=== PATIENT | male | born 1950 | race Hispanic/Latino ===

== ENCOUNTER 2017-11-27 05:51 | Day surgery (SDC) | payer BC, MEDICARE ==
[2017-11-08 09:09] VITALS: BMI 26.3
[2017-11-27 06:44] VITALS: RESP 18
[2017-11-27] MEDS ORDERED: Verapamil 2 ML ONE (06:59)
[2017-11-27] MEDS ORDERED: Lidocaine 2% Inj (20ml) ONE (06:59)
[2017-11-27] MEDS ORDERED: Nitroglycerin 50mg in D5W 50 MG/250 ML BOTTLE IV ONE (06:59)
[2017-11-27] MEDS ORDERED: HEPARIN SODIUM/NS 2,000 ML IV ONE (07:00)
[2017-11-27 07:12] LABS: BASO # 0.01 K/mm3 (0.0-2.0); BASO % 0.2 % (0.0-3.0); EOS # 0.2 (0.0-0.7); EOS % 3.4 % (1.5-5.0); GRAN # 3.24 (1.4-6.5); GRAN % 69.9 % (50.0-68.0); HEMOGLOBIN 14.1 g/dL (14.0-18.0); LYMPH % 21.8 % (22.0-35.0); MEAN CELL VOLUME 97.4 fl (80.0-105.0); MEAN CORPUSCULAR HEMOGLOBIN 33.2 pg (25.0-35.0); MEAN CORPUSCULAR HGB CONC 34.1 g/dl (31.0-37.0); MEAN PLATELET VOLUME 9.9 fl (7.0-11.0); MONO # 0.2 (0.1-0.6); MONO % 4.7 % (1.0-6.0); RBC 4.25 10^6/uL (3.5-6.1); RED CELL DISTRIBUTION WIDTH 13.4 % (11.5-14.5); WHITE BLOOD COUNT 4.6 10^3/ul (4.5-11.0)
[2017-11-27 07:21] LABS: BLOOD UREA NITROGEN 13 mg/dL (7-21); CALCIUM 9.5 mg/dL (8.4-10.5); GFR AFRICAN-AMERICAN > 60; GFR NON-AFRICAN AMERICAN > 60; HDL CHOLESTEROL 67 mg/dL (29-60)
[2017-11-27 07:27] LABS: INR 0.97 (0.93-1.08); PARTIAL THROMBOPLASTIN TIME 32.4 Seconds (25.1-36.5); PROTHROMBIN TIME 11.1 SECONDS (9.4-12.5)
[2017-11-27 07:30] LABS: LDL CHOLESTEROL 120 mg/dL (0-129)
[2017-11-27] MEDS ORDERED: Midazolam 2 MG/2 ML VIAL ONE (07:42)
[2017-11-27] MEDS ORDERED: Bacitracin 500 Units/gm Oint Foilpak UD TOP ONE (08:40)
[2017-11-27] MEDS ORDERED: Sodium Chloride 0.9% 1,000 ML IV SCH (08:45)
[2017-11-27 09:00] VITALS: TEMP 98.7
[2017-11-27 10:43] VITALS: BP 156/89; PULSE 57; O2SAT 98
[2017-11-27] MEDS ORDERED: Bacitracin 500 Units/gm Oint Foilpak UD ONE (11:03)
--- NOTE | 2017-11-27 14:01 | CARD ---
APPROVED REPORT EKG Measurement Heart [id number] <Conclusion> Normal sinus rhythm Normal ECG
--- NOTE | 2017-11-27 14:31 | CARD ---
APPROVED REPORT Procedure(s) performed: Left Heart Catheterization HISTORY The patient is a 67 year-old male with a history of : most recent EF: 53%. (EF Method: ESTIMATE), peripheral vascular disease, previous diagnostic cath, tobacco history() : The patient is a former smoker , previous PCI (The PCI date was 06/27/2018), hypertension , dyslipidemia , [facility] who has a f?u Abnormal stress test. INDICATION The indication(s) include : positive stress test. CASE TECHNIQUE The patient was brought electively to the Cardiac Catheterization Laboratory in a fasting state and was prepped and draped in a sterile manner. The left wrist was infiltrated with 2% Lidocaine subcutaneous anesthesia. A 6FR GLIDESseoreseller.comTH ACCESS KIT sheath was inserted into the left radial artery without difficulty. Coronary angiography was performed using coronary diagnostic catheters. The left coronary system was accessed and visualized with a Diagnostic ,6 Fr JL 3.0 catheter. The right coronary system was accessed and visualized with a Diagnostic ,5 Fr JR 4 catheter. The left ventricle was accessed and visualized with a 5 Fr Pigtail 145 (Angled) catheter. Left ventricular/Aortic Valve gradient assessed on pullback. Left ventriculogram was performed in PEREZ projection. Closure device was deployed with a Fr TR Band (Regular) without any complications. The patient tolerated the procedure well and there were no complications associated with the procedure. Vessel Analysis The patient's coronary anatomy is right dominant. The left main coronary artery is a large size vessel with diffuse calcification noted throughout this vessel and without significant stenosis. Patent stent in proximal left main The left main bifurcates to the left anterior descending and circumflex. The left anterior descending artery is a medium size vessel with diffuse calcification noted throughout this vessel and without significant stenosis. There is a 40-50% stenosis in the ostial segment. Mid LAD has 40-50% stenosis The first diagonal branch is a small size vessel with diffuse calcification noted throughout this vessel and without significant stenosis. The second diagonal branch is a small size vessel with diffuse calcification noted throughout this vessel and without significant stenosis. The circumflex artery is a medium size vessel with diffuse calcification noted throughout this vessel and without significant stenosis. The first obtuse marginal branch is a small size vessel with diffuse calcification noted throughout this vessel and without significant stenosis. The ramus intermedius artery is a large size vessel with diffuse calcification noted throughout this vessel and without significant stenosis. The right coronary artery is a large size vessel with diffuse calcification noted throughout this vessel and with significant stenosis. There is a 55-60% stenosis in the proxima to Midl segment. The right posterior descending artery is a large size vessel with diffuse calcification noted throughout this vessel and without significant stenosis. The right posterolateral branch is a medium size vessel with diffuse calcification noted throughout this vessel and without significant stenosis. Left Ventricle The left ventricle is normal in size with normal contractility. There was no cardiomyopathy. The left ventricular ejection fraction is estimated to be 55-60%. The left ventricular end diastolic pressure is 14 mmHg. Conclusion Patent stent in Left Main Moderate disease in RCA / LAD. Preserved LV Fx./ EF-55-60%, EDP-14 Recommendations Aggressive Medical TherapyCardiac Risk Reduction Program F/u Stress test in one to two years to monitor progression of CAD. CC; DRS. Victorino Lay / [place].
--- NOTE | 2017-11-27 15:00 | HP ---
REASON FOR ADMISSION: Left heart cath, possible angioplasty, and abnormal stress test. BRIEF CLINICAL HISTORY: This is a 67-year-old male with past medical history significant for coronary artery disease, status post stent in left main at [facility] in 05/2016, history of hyperlipidemia, history of hypertension, history of bulging herniated disk and hernia stress test was abnormal, so the patient is scheduled for elective cardiac catheterization, possible angioplasty. PAST MEDICAL HISTORY: Significant for as mentioned hypertension, hyperlipidemia, coronary artery disease, and status post PTCA of left main in 05/2016 at [place]. SOCIAL HISTORY: Denies smoking. Denies any history of alcohol abuse. CURRENT MEDICATIONS: The patient is taking Lidocaine patch for , ticagrelor that is Brilinta 90 mg twice a day, and aspirin 81 mg daily. Most recent cardiac workup as follows: The patient had a stress test dated 11/08/2017, the patient walked for 12 minutes and 26 seconds and the Williams protocol was negative, but a stress component and thallium component was positive for a small apical distal inferior defect suspicious for ischemia, ejection fraction of 53% when compared from the previous study dated 06/07/2016, previous fixed defect now appears to be reversible. The patient also had echocardiography on 11/08/2017 that shows normal chamber size, ejection fraction 65%, mild mitral regurgitation, mild tricuspid regurgitation, RV systolic pressure of 45%, and no pericardial effusion, IVC 50%. PHYSICAL EXAMINATION: VITAL SIGNS: Height of the patient is 5 feet 6 inches. Weight of the patient is 163 pounds. Body mass index is 26.3 kg/m2. Rest of the examination as follows; temperature afebrile, heart rate is 68, and blood pressure 130/70. HEENT: PERRLA. Extraocular muscles intact. NECK: Supple. No carotid bruit or thyromegaly. CHEST: Clear to auscultation. HEART: S1 and S2 regular. ABDOMEN: Soft. EXTREMITIES: Clubbing and cyanosis negative. LABORATORY DATA: Blood workup pending. IMPRESSION: Abnormal stress test showing apical septal inferior defect reversible ischemia suggestive of ischemia. Echocardiogram shows preserved left ventricular function, normal chamber size with an ejection fraction of 65%. RECOMMENDATIONS: We will continue the patient's aspirin and Brilinta. The patient is not taking statin, mentions that he gets rash and intolerance. We will wait for the blood workup, no blood workup is available and within the normal limits, we will proceed for cardiac catheterization for further recommendation and also cardiac catheterization. We will follow with you. Thank you Dr. Jones for providing us the opportunity in taking care of the patient, Ángel Bone. Annette Pedro MD
== END 2017-11-27 12:00 | disposition home or self-care (01) ==
LOC: CATH 05:51
PROVIDERS: ATTEND Internal Medicine Cardiovascular Disease
DX: I25.10 Atherosclerotic heart disease of native coronary artery without angina pectoris (principal); I10 Essential (primary) hypertension; E78.5 Hyperlipidemia, unspecified; I73.9 Peripheral vascular disease, unspecified; Z95.5 Presence of coronary angioplasty implant and graft; Z87.891 Personal history of nicotine dependence
CPT/HCPCS: 36415; 80048; 80061; 85025; 85610; 85730; 86850; 86900; 93005; 93458; 99152; C1887 ×2; J1644 ×2; J2250; J3010; J7040 ×2; Q9967

== ENCOUNTER 2017-12-25 07:59 | Day surgery (SDC) | payer BC, MEDICARE ==
[2017-12-18 16:33] VITALS: BMI 25.8
[2017-12-25 08:32] LABS: INR 0.92 (0.93-1.08); PARTIAL THROMBOPLASTIN TIME 35.8 Seconds (25.1-36.5); PROTHROMBIN TIME 10.6 SECONDS (9.4-12.5)
--- NOTE | 2017-12-25 09:16 | RAD ---
HISTORY: PRE-OP COMPARISON: 06/03/2016 FINDINGS: LUNGS: No active pulmonary disease. PLEURA: No significant pleural effusion identified, no pneumothorax apparent. CARDIOVASCULAR: Normal. OSSEOUS STRUCTURES: No significant abnormalities. VISUALIZED UPPER ABDOMEN: Normal. OTHER FINDINGS: None. IMPRESSION: No active disease.
[2017-12-25] MEDS ORDERED: Midazolam 2 MG/2 ML VIAL ONE (10:23)
[2017-12-25] MEDS ORDERED: Propofol 10 mg/ml Inj (20 ML) ONE (10:23)
[2017-12-25] MEDS ORDERED: Rocuronium 10 mg/ml (5 ml) ONE (10:23)
[2017-12-25] MEDS ORDERED: ePHEDrine 50 mg/ml Inj ONE (11:26)
[2017-12-25] MEDS: Bupivacaine 0.5% Inj(30mL) ONE ×2 (11:26→11:48)
[2017-12-25] MEDS ORDERED: Glycopyrrolate 0.2 mg/ml (2ml vial) ONE (11:28)
[2017-12-25] MEDS ORDERED: Neostigmine Methylsulfate 3mg/3ml Syringe IV ONE (11:28)
[2017-12-25] MEDS ORDERED: Morphine 2 mg/ml ISec IVP PRN (11:37)
[2017-12-25] MEDS ORDERED: Lactated Ringer's 1,000 ML IV SCH (11:45)
--- NOTE | 2017-12-25 12:08 | PCM.SURG1 ---
Surgeon's Initial Post Op Note - Surgeon's Notes Surgeon: Dr. Camargo Stallion Manager: Diana Higgins PGY2 Type of Anesthesia: General Endo Anesthesia Administered By: Dr. Bourne Pre-Operative Diagnosis: Right inguial hernia Operative Findings: right direct inguinal hernia Post-Operative Diagnosis: right direct inguinal hernia Operation Performed: right inguinal hernia repair with mesh Specimen/Specimens Removed: none Estimated Blood Loss: EBL {In ML}: 5 Blood Products Given: N/A Post-Op Condition: Fair Date of Surgery/Procedure: 12/25/17 Time of Surgery/Procedure: 10:30
[2017-12-25 12:58] VITALS: RESP 18; TEMP 97.5
[2017-12-25 13:33] VITALS: BP 140/78; PULSE 65; O2SAT 99
--- NOTE | 2017-12-25 22:53 | OP ---
PROCEDURE DATE: 12/25/2017 PREOPERATIVE DIAGNOSIS: Right inguinal hernia. POSTOPERATIVE DIAGNOSIS: Direct right inguinal hernia. PROCEDURE: Repair of the direct inguinal hernia with Ultrapro mesh patch. SURGEON: Bharat Camargo MD. [employer]: Dr. Higgins. ANESTHESIA ADMINISTERED BY: Dr. Bourne. TYPE OF ANESTHESIA: General endotracheal anesthesia. ESTIMATED BLOOD LOSS: Minimal. SPECIMEN: None. INDICATIONS: The patient is a 67-year-old male with history of right groin bulge associated with tenderness and discomfort and increasing in size over the past few months. Patient was examined in the office, noted to have right inguinal hernia and was scheduled for the repair. DESCRIPTION OF PROCEDURE: The patient was brought to the operating room, placed on the operating table in a supine position. The patient was connected to EKG, blood pressure and pulse oximetry monitors. The patient then underwent general endotracheal anesthesia and was prepped and draped in the usual sterile fashion. First, a standard timeout procedure took place and everybody in the room agreed as to the patient's identity, diagnosis, and procedure to be performed. Using lidocaine mixed with Marcaine, the area of the incision directly overlying the right inguinal canal was carefully infiltrated and the incision made using #15 blade. The incision was carried through the subcutaneous fat and fascia down to the external oblique aponeurosis using electrocautery. Once this was exposed, the external oblique aponeurosis was incised along its fibers using #15 blade and elevated on 2 mosquito clamps. A Weitlaner clamp was used in order to separate the edges of the transversalis fascia and the underlying spermatic cord with structure was carefully dissected down and elevated on a Roni drain. The ilioinguinal nerve was noted to be running high up above the line of spermatic cord and it was left intact. The cord was elevated and Roni drain was carefully skeletonized and a large direct inguinal hernia was carefully reduced. The cord itself was skeletonized and noted to have no evidence of indirect inguinal hernia. Next, the internal ring of the inguinal canal was carefully entered and the preperitoneal space was mobilized. The Ultrapro mesh patch was used and sutured to the edges of the transversalis fascia and the inguinal ligament using 0 Vicryl stitch. The keyhole was cut out for the exit site of the spermatic cord in the external leaf of the patch and the external portion of the patch was placed on the floor of the inguinal canal. Now, the cord was placed back in its original position. The patch was trimmed appropriately in order to avoid any excess material. It was covering all the floor of the inguinal canal all the way up to the pubic tubercle and through the keyhole passed exit site of the spermatic cord. Now, the external oblique aponeurosis was sutured together using 3-0 Vicryl and the area was infiltrated with a total mix of Marcaine in the area of the anterior iliac spine in order to give a regional block. Once this was completed, the transversalis fascia was closed using 3-0 Vicryl after the wound was copiously irrigated. Excellent hemostasis was noted. The subcutaneous tissues were closed using 3-0 Vicryl and the skin was closed using 4-0 Monocryl. A sterile Dermabond dressing was applied to the wound. The patient tolerated the procedure well and there was no complications. The patient was awakened and transferred to the recovery room for further observation. Bharat Camargo MD
== END 2017-12-25 14:10 | disposition home or self-care (01) ==
LOC: SDS 07:59
PROVIDERS: ATTEND General Practice
DX: K40.90 Unilateral inguinal hernia, without obstruction or gangrene, not specified as recurrent (principal); I25.10 Atherosclerotic heart disease of native coronary artery without angina pectoris
CPT/HCPCS: 36415; 49505; 71045; 85610; 85730; J0690; J1885; J2001; J2250; J2270; J2405; J2704; J2710; J3010; J7120

== ENCOUNTER 2018-01-24 08:08 | Day surgery (SDC) | payer BC, MEDICARE ==
[2017-12-18 16:33] VITALS: BMI 25.8
[2018-01-24 08:48] VITALS: RESP 14
[2018-01-24] MEDS ORDERED: Propofol 10 mg/ml Inj (20 ML) ONE (09:27)
[2018-01-24] MEDS ORDERED: Sodium Chloride 0.9% 1,000 ML IV SCH (10:15)
[2018-01-24 10:32] VITALS: TEMP 98
[2018-01-24 10:33] VITALS: O2SAT 99
[2018-01-24 11:14] VITALS: BP 159/77; PULSE 61
== END 2018-01-24 11:42 | disposition home or self-care (01) ==
LOC: ENDO 08:08
PROVIDERS: ATTEND Specialist
DX: D12.2 Benign neoplasm of ascending colon (principal); D12.5 Benign neoplasm of sigmoid colon; K64.8 Other hemorrhoids; K57.30 Diverticulosis of large intestine without perforation or abscess without bleeding; I25.10 Atherosclerotic heart disease of native coronary artery without angina pectoris; E78.5 Hyperlipidemia, unspecified; Z12.11 Encounter for screening for malignant neoplasm of colon
CPT/HCPCS: 45380; 45385; 88305; J2704; J7040 ×2